=== PATIENT | male | born 1980 | race Caucasian/White ===

== ENCOUNTER → 2018-03-28 09:45 | Outpatient (CLI) | payer OTHER, SELFPAY ==
--- NOTE | 2018-03-28 09:54 | XR_ITS ---
XR ribs LT min 3V w CXR1V HISTORY: Pain following injury ITS.REASON: INJURY OF CHEST WALL] ORDERING PHYSICIAN: Bouchra Mahajan PATIENT AGE: 38 years Comparison: None FINDINGS: A frontal view of the chest shows no acute finding. Multiple views of the Left ribs were obtained. No fracture or dislocation. No lytic or blastic change. IMPRESSION: Negative RIBS. If pain persists, consider follow-up exam in 7-[address] with 3-D reformats.
== END ==
PROVIDERS: PCP Nurse Practitioner Family; Visit Provider Nurse Practitioner Family
DX: S29.9XXA Unspecified injury of thorax, initial encounter (principal)
CPT/HCPCS: 71101

== ENCOUNTER → 2019-11-20 10:33 | Outpatient (CLI) | payer OTHER, SELFPAY ==
--- NOTE | 2019-11-20 10:36 | MR_ITS ---
PROCEDURE: MR LUMBAR SPINE WO CON CLINICAL INDICATION: LUMBAGO WITH SCIATICA Low back pain with bilateral numbness in size tingling in the right leg bilateral groin pain, prior surgery COMPARISON: CT ABDOMEN PELVIS WO CON from 04/30/2019 TECHNIQUE: Standard multiplanar multiecho sequences are performed without contrast. 3-D MIP and myelographic images are also rendered and reviewed FINDINGS: There is normal alignment. The spinal cord ends at the T12 level. There is multilevel degenerative disc disease. T11-T12: Mild degenerative disc disease with minimal bulging disc. T12-L1: Mild degenerative disc disease. L1-L2: Facet and ligamentum hypertrophy with mild bilateral lateral recess narrowing. L2-L3: Degenerative disc disease with bulging disc along with facet ligamentum hypertrophy with bilateral lateral recess and bilateral foraminal narrowing. Borderline narrowing of the canal. Prominent bony hypertrophy. L3-L4: Degenerative disc disease with minimal bulging disc and endplate hypertrophic change along with moderate to severe facet and ligamentum hypertrophy. The bulging disc is slightly eccentric toward the right. There is severe canal stenosis of 7 mm along with severe bilateral lateral recess narrowing and moderate to severe bilateral foraminal narrowing slightly greater on the left. Prominent bony hypertrophy. L4-5: Degenerative disc disease with bulging disc and a broad based left paracentral and foraminal disc protrusion along with facet and ligamentum hypertrophy with moderate left lateral recess narrowing, moderate right foraminal narrowing, and severe left foraminal narrowing. L5-S1: Facet and ligamentum hypertrophy with moderate bilateral foraminal narrowing. No extruded herniated disc. IMPRESSION: Abnormal MRI of the lumbar spine with multilevel lumbar spondylosis with degenerative disc disease along with facet ligamentum hypertrophy, canal stenosis, lateral recess and foraminal narrowing with bulging discs and disc protrusions. Please see above for detailed description at each level Dictated by: Juan Ward MD 11/22/2019 10:40 Electronically signed by Juan Ward MD in [place] 11/22/2019 10:40
== END ==
PROVIDERS: PCP Nurse Practitioner Family; Visit Provider Nurse Practitioner Family
DX: M54.41 Lumbago with sciatica, right side (principal); M54.42 Lumbago with sciatica, left side; Z98.890 Other specified postprocedural states
CPT/HCPCS: 72148; 76376

== ENCOUNTER → 2021-07-01 08:23 | Outpatient (CLI) | payer OTHER, SELFPAY ==
[2021-07-02 08:22] LABS: Covid-19 Nasal PCR Sendout Lex POSITIVE
== END ==
PROVIDERS: Visit Provider Nurse Practitioner
DX: U07.1 COVID-19 (principal)
CPT/HCPCS: C9803; U0004; U0005